=== PATIENT | male | born 1960 ===

== ENCOUNTER → 2020-01-01 | Outpatient (CLI) | payer BC | LOC: LAB 08:05 → LAB SHORT 08:05 | DX: D48.5 Neoplasm of uncertain behavior of skin (principal) | CPT/HCPCS: 88312 ==

== ENCOUNTER → 2022-08-17 | Outpatient (CLI) | payer BC | LOC: LAB 08:39 → LAB SHORT 08:39 | DX: D48.5 Neoplasm of uncertain behavior of skin (principal) | CPT/HCPCS: 88312 ==